=== PATIENT | female | born 1995 | race Caucasian/White ===

== ENCOUNTER 2017-11-19 12:17 | Emergency (ER) | payer OTHER ==
[~2017-11-19] VITALS: Ht 147.3 cm; Wt 49.0 kg
[~2017-11-19 12:17] MED LIST: CIPROFLOXACIN500 M4 PO; HUMALOG100 U/ML; HUMALOG100 U/ML SC; HUMI SC; LANTI SQ; MECLIZINE25 M3 PO; PROS INH; TAMIFLU75 MG PO
[2017-11-19 12:23] VITALS: BP 100/68; Ht 147.3 cm; Wt 49.0 kg
== END 2017-11-19 14:47 | disposition home or self-care (01) ==
LOC: ED 12:17
DX: R42 Dizziness and giddiness (principal); E11.9 Type 2 diabetes mellitus without complications; Z88.6 Allergy status to analgesic agent
CPT/HCPCS: 82962; Q0162

== ENCOUNTER 2018-10-03 04:18 | Inpatient (IN) | payer OTHER ==
[~2018-10-03] VITALS: Ht 147.3 cm; Wt 52.0 kg
[2018-10-03 04:26] VITALS: Ht 147.3 cm; Wt 52.0 kg
[2018-10-03 05:21] LABS: microscopic required? NO
[2018-10-03 05:32] LABS: BASOPHIL % 0.2 % (0-2); PLATELET COUNT 219 x10^3mcL (130-400); RED CELL DISTRIBUTION WIDTH 13.1 % (11.5-14.5)
[2018-10-03 05:59] LABS: urine erythrocyte NEGATIVE (NEGATIVE)
[2018-10-03 06:09] LABS: ALBUMIN 3.7 g/dL (3.4-5.0); ALKALINE PHOSPHATASE 142 U/L (46-116); ALT/SGPT 23 U/L (14-59); AST/SGOT 12 U/L (15-37); BILIRUBIN TOTAL 0.68 mg/dL (0.20-1.00); CALCIUM 8.3 mg/dL (8.5-10.1); CARBON DIOXIDE 17.9 mmol/L (21-32); CHLORIDE SERUM 99 mmol/L (98-107); FREE T4 1.08 ng/dL (0.76-1.46); GFR1 > 60 mL/min; LIPASE 110 IU/L (73-393); POTASSIUM SERUM 5.1 mmol/L (3.5-5.1); SODIUM SERUM 133 mmol/L (136-145); TOTAL PROTEIN, SERUM 8.2 g/dL (6.4-8.2)
[2018-10-03 06:13] LABS: GLUCOSE SERUM 511 mg/dL (74-106)
[2018-10-03 08:15] LABS: AMPHETAMINE QUAL UR NONE DETECTED (See below)
[2018-10-03 09:06] LABS: CALCIUM 7.6 mg/dL (8.5-10.1); CARBON DIOXIDE 13.4 mmol/L (21-32); CHLORIDE SERUM 106 mmol/L (98-107); GFR1 > 60 mL/min; MAGNESIUM 1.6 mg/dL (1.8-2.4); PHOSPHOROUS 3.5 mg/dL (2.5-4.9); POTASSIUM SERUM 4.8 mmol/L (3.5-5.1); SODIUM SERUM 138 mmol/L (136-145)
[2018-10-03 09:27] VITALS: BP 90/56
[2018-10-03 09:32] LABS: GLUCOSE SERUM 511 mg/dL (74-106)
[2018-10-03 10:11] LABS: T3 TOTAL 0.78 ng/mL
[2018-10-03 10:15] LABS: MAGNESIUM 1.8 mg/dL (1.8-2.4); PHOSPHOROUS 3.8 mg/dL (2.5-4.9)
[2018-10-03 10:32] LABS: FREE T4 1.1 ng/dL (0.76-1.46); FREE THYROXINE INDEX 1.8 ug/dL (1.4-4.5); T4(THYROXINE) 4.7 ug/dL (4.7-13.3)
[2018-10-03 11:30] VITALS: BP 98/66
[2018-10-03 11:52] LABS: CARBON DIOXIDE 14.9 mmol/L (21-32); CHLORIDE SERUM 113 mmol/L (98-107); CREATININE SERUM 0.9 mg/dL (0.6-1.0); GFR1 > 60 mL/min; GLUCOSE SERUM 225 mg/dL (74-106); MAGNESIUM 1.7 mg/dL (1.8-2.4); PHOSPHOROUS 2.5 mg/dL (2.5-4.9); POTASSIUM SERUM 3.9 mmol/L (3.5-5.1); SODIUM SERUM 141 mmol/L (136-145)
[2018-10-03 12:00] LABS: CALCIUM 7.2 mg/dL (8.5-10.1)
[2018-10-03 16:30] VITALS: BP 101/59
[2018-10-03 16:58] LABS: CALCIUM 7.8 mg/dL (8.5-10.1); CHLORIDE SERUM 106 mmol/L (98-107); CREATININE SERUM 0.8 mg/dL (0.6-1.0); GFR1 > 60 mL/min; GLUCOSE SERUM 192 mg/dL (74-106); MAGNESIUM 1.6 mg/dL (1.8-2.4); PHOSPHOROUS 3.3 mg/dL (2.5-4.9); POTASSIUM SERUM 3.9 mmol/L (3.5-5.1); SODIUM SERUM 135 mmol/L (136-145)
[2018-10-03 19:30] VITALS: BP 113/68
[2018-10-03 20:28] LABS: CALCIUM 8.1 mg/dL (8.5-10.1); CARBON DIOXIDE 18.4 mmol/L (21-32); CHLORIDE SERUM 103 mmol/L (98-107); CREATININE SERUM 0.9 mg/dL (0.6-1.0); GFR1 > 60 mL/min; GLUCOSE SERUM 234 mg/dL (74-106); MAGNESIUM 1.5 mg/dL (1.8-2.4); PHOSPHOROUS 2.9 mg/dL (2.5-4.9); POTASSIUM SERUM 3.8 mmol/L (3.5-5.1); SODIUM SERUM 133 mmol/L (136-145)
[2018-10-03 23:45] VITALS: BP 100/59
[2018-10-04 03:22] VITALS: BP 108/69
[2018-10-04 05:47] LABS: BASOPHIL % 0.3 % (0-2); PLATELET COUNT 184 x10^3mcL (130-400); RED CELL DISTRIBUTION WIDTH 13.3 % (11.5-14.5)
[2018-10-04 05:52] LABS: CALCIUM 7.9 mg/dL (8.5-10.1); CARBON DIOXIDE 21.2 mmol/L (21-32); CHLORIDE SERUM 106 mmol/L (98-107); CREATININE SERUM 0.7 mg/dL (0.6-1.0); GFR1 > 60 mL/min; GLUCOSE SERUM 129 mg/dL (74-106); MAGNESIUM 1.4 mg/dL (1.8-2.4); PHOSPHOROUS 3.1 mg/dL (2.5-4.9); POTASSIUM SERUM 3.4 mmol/L (3.5-5.1); SODIUM SERUM 136 mmol/L (136-145)
[2018-10-04 09:59] VITALS: BP 117/66
[2018-10-04 13:21] VITALS: BP 100/60
[2018-10-04 13:55] VITALS: BP 95/67
[2018-10-04 17:31] VITALS: BP 99/59
[2018-10-04 20:36] VITALS: BP 97/53
[2018-10-05 05:48] VITALS: BP 97/59
[2018-10-05 06:36] LABS: BASOPHIL % 0.3 % (0-2); PLATELET COUNT 154 x10^3mcL (130-400); RED CELL DISTRIBUTION WIDTH 13.1 % (11.5-14.5)
[2018-10-05 06:45] LABS: CALCIUM 7.8 mg/dL (8.5-10.1); CARBON DIOXIDE 21.8 mmol/L (21-32); CHLORIDE SERUM 100 mmol/L (98-107); CREATININE SERUM 0.6 mg/dL (0.6-1.0); GFR1 > 60 mL/min; GLUCOSE SERUM 364 mg/dL (74-106); MAGNESIUM 1.6 mg/dL (1.8-2.4); PHOSPHOROUS 3.5 mg/dL (2.5-4.9); POTASSIUM SERUM 4.5 mmol/L (3.5-5.1); SODIUM SERUM 131 mmol/L (136-145)
[2018-10-05 09:40] VITALS: BP 104/65
[2018-10-05 13:40] VITALS: BP 93/61
[2018-10-05 17:11] VITALS: BP 90/63
[2018-10-05 20:33] VITALS: BP 101/68
[2018-10-06 05:21] VITALS: BP 90/58
[2018-10-06 06:48] LABS: CALCIUM 8.2 mg/dL (8.5-10.1); CARBON DIOXIDE 27.8 mmol/L (21-32); CHLORIDE SERUM 102 mmol/L (98-107); CREATININE SERUM 0.5 mg/dL (0.6-1.0); GFR1 > 60 mL/min; GLUCOSE SERUM 86 mg/dL (74-106); POTASSIUM SERUM 3.4 mmol/L (3.5-5.1); SODIUM SERUM 138 mmol/L (136-145)
[2018-10-06 07:26] LABS: BASOPHIL % 0.2 % (0-2); PLATELET COUNT 182 x10^3mcL (130-400); RED CELL DISTRIBUTION WIDTH 13.1 % (11.5-14.5)
[2018-10-06 09:06] VITALS: BP 90/58
[2018-10-06 09:58] VITALS: BP 92/64
[2018-10-06] MEDS ORDERED: MUCINEX FAST-M177 M2 PO (10:18)
== END 2018-10-06 11:40 | disposition home or self-care (01) | DRG 420 ==
LOC: ED 04:18 → DU 07:47 → IC 07:47 → DU 10-04 13:46
PROVIDERS: Emergency Medicine; Internal Medicine
DX: E10.10 Type 1 diabetes mellitus with ketoacidosis without coma (principal); R65.10 Systemic inflammatory response syndrome (SIRS) of non-infectious origin without acute organ dysfunction; E83.42 Hypomagnesemia; E83.51 Hypocalcemia; E87.1 Hypo-osmolality and hyponatremia; Z96.41 Presence of insulin pump (external) (internal); Z79.4 Long term (current) use of insulin; Z68.22 Body mass index [BMI] 22.0-22.9, adult; Z88.6 Allergy status to analgesic agent; Z88.3 Allergy status to other anti-infective agents; Z83.49 Family history of other endocrine, nutritional and metabolic diseases
CPT/HCPCS: 82962; 83880; 84439; 87804; G0480; J1815; J2270; J2405; J2543; J3475; J3490; J7030

== ENCOUNTER 2018-12-28 14:39 | Emergency (ER) | payer OTHER ==
[~2018-12-28] VITALS: Ht 149.9 cm; Wt 49.0 kg
[~2018-12-28 14:39] MED LIST changes: +MUCINEX FAST-M177 M2 PO
[2018-12-28 14:43] VITALS: Ht 149.9 cm; Wt 49.0 kg
[2018-12-28 15:41] LABS: BASOPHIL % 0.2 % (0-2); PLATELET COUNT 295 x10^3mcL (130-400); RED CELL DISTRIBUTION WIDTH 12.8 % (11.5-14.5)
[2018-12-28 15:44] LABS: UA SPECIFIC GRAVITY <=1.005 (1.005-1.035); microscopic required? YES; urine erythrocyte TRACE (NEGATIVE)
[2018-12-28 15:58] LABS: ALBUMIN 3.8 g/dL (3.4-5.0); ALKALINE PHOSPHATASE 123 U/L (46-116); ALT/SGPT 13 U/L (14-59); AST/SGOT 14 U/L (15-37); BILIRUBIN TOTAL 0.7 mg/dL (0.20-1.00); CALCIUM 8.9 mg/dL (8.5-10.1); CARBON DIOXIDE 20.9 mmol/L (21-32); CHLORIDE SERUM 97 mmol/L (98-107); CREATININE SERUM 0.9 mg/dL (0.6-1.0); GFR1 > 60 mL/min; POTASSIUM SERUM 4.3 mmol/L (3.5-5.1); SODIUM SERUM 132 mmol/L (136-145); TOTAL PROTEIN, SERUM 8.2 g/dL (6.4-8.2)
[2018-12-28 16:22] LABS: GLUCOSE SERUM 518 mg/dL (74-106)
[2018-12-28 18:48] VITALS: BP 97/64
== END 2018-12-28 18:40 | disposition home or self-care (01) ==
LOC: ED 14:39
PROVIDERS: Emergency Medicine
DX: E10.65 Type 1 diabetes mellitus with hyperglycemia (principal); E86.0 Dehydration; N39.0 Urinary tract infection, site not specified; Z79.4 Long term (current) use of insulin; Z88.6 Allergy status to analgesic agent; Z88.8 Allergy status to other drugs, medicaments and biological substances
CPT/HCPCS: 36600; 82962; J1815; J7030; Q0092

== ENCOUNTER 2019-03-04 14:07 | Emergency (ER) | payer OTHER ==
[~2019-03-04] VITALS: Ht 147.3 cm; Wt 49.0 kg
[2019-03-04 14:20] VITALS: Ht 147.3 cm; Wt 49.0 kg
[2019-03-04 15:14] LABS: CALCIUM 9.1 mg/dL (8.5-10.1); CARBON DIOXIDE 27.3 mmol/L (21-32); CHLORIDE SERUM 99 mmol/L (98-107); CREATININE SERUM 0.7 mg/dL (0.6-1.0); GFR1 > 60 mL/min; GLUCOSE SERUM 235 mg/dL (74-106); POTASSIUM SERUM 4.4 mmol/L (3.5-5.1); SODIUM SERUM 136 mmol/L (136-145)
[2019-03-04 15:16] LABS: BASOPHIL % 0.7 % (0-2); PLATELET COUNT 397 x10^3mcL (130-400); RED CELL DISTRIBUTION WIDTH 12.6 % (11.5-14.5)
[2019-03-04 15:18] LABS: ALKALINE PHOSPHATASE 83 U/L (46-116); ALT/SGPT 14 U/L (14-59); AMYLASE 33 U/L (25-115); AST/SGOT 12 U/L (15-37); BILIRUBIN TOTAL 0.2 mg/dL (0.20-1.00); LIPASE 94 IU/L (73-393)
[2019-03-04 15:28] LABS: microscopic required? NO
[2019-03-04 15:29] LABS: ALBUMIN 2.8 g/dL (3.4-5.0); TOTAL PROTEIN, SERUM 8.3 g/dL (6.4-8.2)
[2019-03-04 15:43] LABS: UA SPECIFIC GRAVITY 1.015 (1.005-1.035); urine erythrocyte NEGATIVE (NEGATIVE)
[2019-03-04 18:03] VITALS: BP 97/72
== END 2019-03-04 18:03 | disposition home or self-care (01) ==
LOC: ED 14:07
PROVIDERS: Specialist
DX: M54.5 Low back pain (principal); E10.9 Type 1 diabetes mellitus without complications; Z88.6 Allergy status to analgesic agent; Z88.8 Allergy status to other drugs, medicaments and biological substances
CPT/HCPCS: 82962; J7030; Q0092

== ENCOUNTER 2019-04-22 15:16 | Emergency (ER) | payer OTHER ==
[~2019-04-22] VITALS: Ht 144.8 cm; Wt 86.2 kg
[2019-04-22 15:34] VITALS: Ht 144.8 cm; Wt 86.2 kg
[2019-04-22 18:21] VITALS: BP 118/71
== END 2019-04-22 18:22 | disposition home or self-care (01) ==
LOC: ED 15:16
DX: R55 Syncope and collapse (principal); R51 Headache; N39.0 Urinary tract infection, site not specified; E11.9 Type 2 diabetes mellitus without complications; Z88.8 Allergy status to other drugs, medicaments and biological substances
CPT/HCPCS: 82962; J1885; Q0162

== ENCOUNTER 2019-10-26 08:20 | Emergency (ER) | payer OTHER ==
[~2019-10-26] VITALS: Ht 147.3 cm; Wt 46.3 kg
[2019-10-26 08:25] VITALS: Ht 147.3 cm; Wt 46.3 kg
[2019-10-26 09:04] LABS: BASOPHIL % 0.3 % (0-2); PLATELET COUNT 331 x10^3mcL (130-400); RED CELL DISTRIBUTION WIDTH 12.3 % (11.5-14.5)
[2019-10-26 09:21] LABS: CALCIUM 9.3 mg/dL (8.5-10.1); CARBON DIOXIDE 24.9 mmol/L (21-32); CHLORIDE SERUM 101 mmol/L (98-107); CREATININE SERUM 0.7 mg/dL (0.6-1.0); GFR1 > 60 mL/min; GLUCOSE SERUM 193 mg/dL (74-106); POTASSIUM SERUM 3.9 mmol/L (3.5-5.1); SODIUM SERUM 136 mmol/L (136-145)
[2019-10-26 09:26] LABS: ALBUMIN 3.7 g/dL (3.4-5.0); ALKALINE PHOSPHATASE 109 U/L (46-116); ALT/SGPT 15 U/L (14-59); AST/SGOT 10 U/L (15-37); BILIRUBIN TOTAL 0.7 mg/dL (0.20-1.00)
[2019-10-26 09:41] LABS: TOTAL PROTEIN, SERUM 9.1 g/dL (6.4-8.2)
[2019-10-26 14:03] VITALS: BP 103/69
== END 2019-10-26 14:03 | disposition home or self-care (01) ==
LOC: ED 08:20
PROVIDERS: Emergency Medicine
DX: J20.8 Acute bronchitis due to other specified organisms (principal); R53.1 Weakness; E10.9 Type 1 diabetes mellitus without complications; Z88.6 Allergy status to analgesic agent; Z88.2 Allergy status to sulfonamides
CPT/HCPCS: 82962; 87804; J2765; J7030; Q0092